=== PATIENT | female | born 1970 | race African-American/Black ===

== ENCOUNTER 2017-02-09 14:53 | Emergency (ER) | payer OTHER ==
[~2017-02-09] VITALS: Ht 165.1 cm; Wt 81.6 kg
--- NOTE | 2017-02-09 17:18 | NUR ---
Patient discharged to home in stable conditon. Written and verbal after care instructions given. Patient verbalizes understanding of instructions.
== END 2017-02-09 17:34 | disposition home or self-care (01) ==
LOC: ER 14:53
DX: S93.432A Sprain of tibiofibular ligament of left ankle, initial encounter (principal); W22.8XXA Striking against or struck by other objects, initial encounter; Y93.89 Activity, other specified; Y92.9 Unspecified place or not applicable; Y99.9 Unspecified external cause status
CPT/HCPCS: 29515; 73610; 99284; A4663